=== PATIENT | female | born 1955 | race Caucasian/White ===

== ENCOUNTER 2022-07-09 12:14 | Outpatient (CLI) | payer MEDICARE, SELFPAY ==
--- NOTE | ~2022-07-09 | US_ITS ---
EXAMINATION: US venous doppler LE RT DATE: 07/09/2022 12:48 INDICATION: Chronic venous insufficiency of the lower extremities TECHNIQUE: Grayscale ultrasound images without and with compression and Doppler ultrasound images of the right lower extremity veins were obtained. COMPARISON: None. FINDINGS: The visualized portions of right common femoral vein, profunda (deep) femoral vein, femoral vein, pop liteal vein, peroneal trunk, posterior tibial veins, peroneal veins, gastrocnemius vein and greater s aphenous vein outflow are patent. IMPRESSION: 1. No deep venous thrombosis in the right lower limb. Reviewed, dictated and finalized at location A. [facility]
== END 2022-07-09 12:15 | disposition home or self-care (01) ==
PROVIDERS: PCP Family Medicine; Visit Provider Family Medicine
DX: M79.89 Other specified soft tissue disorders (principal)
CPT/HCPCS: 93971

== ENCOUNTER 2022-08-15 13:15 | Outpatient (CLI) | payer MEDICARE, SELFPAY ==
--- NOTE | 2022-08-15 13:29 | ECHO_ITS ---
Patient Info Name: Sandra Perez Age: 66 years : 1955 Gender: Female Ht: 64 in Wt: 263 lbs BSA: 2.39 m2 HR: 96 bpm BP: 178 / 98 mmHg Heart Rhythm: Sinus Rhythm Exam Date: 08/15/2022 2:45 PM Exam Location: [facility] Patient Status: Outpatient Admit Date: 08/15/2022 Staff Ordering Physician: Marti Irizarry MD It Sales Representative: Christina Martini RDCS Attending Provider: Marti Irizarry MD Exam Type: CA echo doppler color flow Study Info Indications I10 - Essential (primary) hypertension Complete two-dimensional, color flow and Doppler transthoracic echocardiogram is performed. Summary 1. Complete two-dimensional, color flow and Doppler transthoracic echocardiogram is performed. 2. Left ventricular systolic function is normal, estimated at 55-60%. 3. There is mildly increased left ventricular wall thickness. 4. The left ventricular diastolic function is grade I diastolic dysfunction. 5. There is mild tricuspid valve regurgitation. Left Ventricle Left ventricular chamber dimension is normal. Left ventricular systolic function is normal, estimated at 55-60%. There is mildly increased left ventricular wall thickness. The left ventricular diastolic function is grade I diastolic dysfunction. Right Ventricle Right ventricular chamber dimension is normal. Left Atria Left atrial chamber dimension is normal. Right Atria Right atrial chamber dimension is normal. Atrial Septum Intact interatrial septum visualized by color flow imaging. Aortic Valve The aortic valve is probable trileaflet. There is no aortic valve stenosis. There is no aortic valve regurgitation. Pulmonic Valve The pulmonic valve is not well visualized. Mitral Valve There is no mitral valve stenosis. There is trace mitral valve regurgitation. There is mild mitral valve calcification. Tricuspid Valve The tricuspid valve leaflets are normal. There is mild tricuspid valve regurgitation. Pericardium/Pleural There is no pericardial effusion. Inferior Vena Cava Dilated inferior vena cava with <50% collapse upon inspiration consistent with elevated right atrial pressure. Aorta The aortic root size at the sinus of Valsalva is normal. Left Ventricular Outflow Tract Name Value Normal LVOT 2D LVOT Diameter 2.0 cm LVOT Doppler LVOT Peak Gradient 4 mmHg LVOT Mean Gradient 2 mmHg LVOT VTI 22 cm LVOT VTI/AV VTI Ratio 0.5 LVOT Stroke Volume 69 ml Pulmonic Valve Name Value Normal RVOT Doppler RVOT Peak Gradient 2 mmHg PV Doppler PV Peak Gradient 7 mmHg Mitral Valve
== END 2022-08-15 13:16 | disposition home or self-care (01) ==
PROVIDERS: PCP Family Medicine; Visit Provider Family Medicine
DX: R01.1 Cardiac murmur, unspecified (principal); I10 Essential (primary) hypertension; I07.1 Rheumatic tricuspid insufficiency
CPT/HCPCS: 93306

== ENCOUNTER 2022-08-27 00:29 | Day surgery (SDC) | payer MEDICARE, SELFPAY ==
[2022-08-13 11:35] VITALS: BMI 44.9
[2022-08-27 06:18] VITALS: BP 151/72; PULSE 88; RESP 16; TEMP 36.2; O2SAT 99
[2022-08-27] MEDS: LACTATED RINGERS 1,000 ML 150 ML IV CONT (06:22)
[2022-08-27 06:28] LABS: Glucose Point of Care 111 mg/dl (65-105)
--- NOTE | 2022-08-27 07:19 | WPDANESEPPF ---
Anes - Initial Pre Proc Eval Procedure: Operation Date: 08/27/22 07:30 Proposed Procedures p Screening Colonoscopy - Dharmesh Peters MD Date/Time: 08/27/22 07:19 Surgeon: Dharmesh Peters MD Pre Op Diagnosis: Neoplasm Screening Patient Data Age: 66 Gender: F Height: 1.63 m Weight: 116.8 kg Last Vital Signs Temp 97.2 F L 08/27/22 06:18 Pulse 88 08/27/22 06:18 Resp 16 08/27/22 06:18 BP 151/72 H 08/27/22 06:18 Pulse Ox 99 08/27/22 06:18 O2 Del Method Room Air 08/27/22 06:18 Allergies Allergy/AdvReac Type Severity Reaction Status Date / Time Sulfa (Sulfonamide AdvReac Unknown Nausea and Verified 08/27/22 06:17 Antibiotics) Vomiting Home Medications Medication Instructions Recorded Confirmed Type amlodipine 5 mg tablet 5 mg PO DAILY #90 tabs 02/04/22 08/27/22 Rx blood-glucose meter (OneTouch #1 ea 02/12/22 08/27/22 Rx Ultra2 Meter kit) metformin 1,000 mg tablet 1,000 mg PO BID #180 tabs 03/20/22 08/27/22 Rx tramadol 50 mg tablet 50 mg PO Q8H PRN pain #30 tabs 03/20/22 08/27/22 Rx furosemide 40 mg tablet 40 mg PO DAILY #90 tabs 04/10/22 08/27/22 Rx lisinopril 40 mg tablet 40 mg PO DAILY #90 tabs 04/10/22 08/27/22 Rx glipizide 10 mg tablet 20 mg PO BID #360 tabs 07/09/22 08/27/22 Rx potassium chloride 20 mEq 20 meq PO DAILY 07/09/22 08/27/22 History tablet,extended release(part/cryst) pramipexole 1 mg tablet 1.5 mg PO BID #90 tabs 07/23/22 08/27/22 Rx triamcinolone acetonide 0.5 % 1 applic topical BID #30 grams 07/23/22 08/27/22 Rx topical cream cholecalciferol (vitamin D3) 1,250 1,250 mcg PO WEEKLY #12 tabs 08/06/22 08/27/22 Rx mcg (50,000 unit) tablet cyanocobalamin (vitamin B-12) 1,000 mcg sublingual DAILY #90 tabs 08/06/22 08/27/22 Rx 1,000 mcg sublingual tablet gabapentin 300 mg capsule 300 mg PO TID 08/06/22 08/27/22 History Laboratory Tests 08/27/22 06:22 POC Capillary Glucose 111 mg/dl H mg/dl (65-105) Patient hx anesthesia problems: none Family hx anesthesia problems: none Results Review: All pre-operative results and documents have been reviewed as part of the pre-operative evaluation. [facility] Past Medical History Medical History Asymptomatic varicose veins of bilateral lower extremities Chronic venous insufficiency of lower extremity Essential hypertension Hyperlipidemia, unspecified Hypertension Restless leg syndrome Type 2 diabetes mellitus with other circulatory complications Surgical History Surgical History H/O section Family History Family History Mother Diabetes mellitus, Onset Age: 83 Grandparent Diabetes mellitus, Onset Age: 68 Family history of cardiovascular disease, Onset Age: 68 Cerebrovascular accident, Onset Age: 41 Family history of dementia, Onset Age: 87 Father Family history of cardiovascular disease, Onset Age: 74 Social History Social History Smoking packs per day: 1 Smoking cigarettes per day: 20.0 Years smoked: 18 Smoking pack-years: 18.00 Smoking status: Former smoker Tobacco type: cigarettes Second hand tobacco smoke exposure: Yes (States mother smokes so she is exposed once a day) Smoking end date: 08/18/93 Alcohol intake: current Alcohol use details: On occasion Substance use: never Substance use type: does not use Lack of Transportation: No Lack of Food: Never True Current Housing: I Have Housing Concerned About Future Housing: No Difficulty Paying Gas/Electric Bills: No Difficulty Paying for Meds: No Currently Unemployed: No Education: Associate Degree Difficulty w/ Childcare or Family Care: No Gender identity (if verbalized by the patient): Female Sexual Orientation (if Verbalized by the
--- NOTE | 2022-08-27 07:24 | PM.HPGS ---
History of Present Illness History of Present Illness Consent: Risks, benefits, and alternatives have been discussed and questions answered. Patient agrees to proceed with procedure. Chief complaint: Neoplasm Screening Narrative: Sandra Perez is a 66 year old female Presents for screening colonoscopy. Patient's current weight appetite and bowel movements are normal. Patient denies abdominal pain. She has had no bleeding. Family history is noncontributory. Review of Systems Review of Systems: Review of systems noncontributory. [facility] Past Medical History Medical History Asymptomatic varicose veins of bilateral lower extremities Chronic venous insufficiency of lower extremity Essential hypertension Hyperlipidemia, unspecified Hypertension Restless leg syndrome Type 2 diabetes mellitus with other circulatory complications Surgical History Surgical History H/O section Family History Family History Mother Diabetes mellitus, Onset Age: 83 Grandparent Diabetes mellitus, Onset Age: 68 Family history of cardiovascular disease, Onset Age: 68 Cerebrovascular accident, Onset Age: 41 Family history of dementia, Onset Age: 87 Father Family history of cardiovascular disease, Onset Age: 74 Social History Social History Smoking packs per day: 1 Smoking cigarettes per day: 20.0 Years smoked: 18 Smoking pack-years: 18.00 Smoking status: Former smoker Tobacco type: cigarettes Second hand tobacco smoke exposure: Yes (States mother smokes so she is exposed once a day) Smoking end date: 08/18/93 Alcohol intake: current Alcohol use details: On occasion Substance use: never Substance use type: does not use Lack of Transportation: No Lack of Food: Never True Current Housing: I Have Housing Concerned About Future Housing: No Difficulty Paying Gas/Electric Bills: No Difficulty Paying for Meds: No Currently Unemployed: No Education: Associate Degree Difficulty w/ Childcare or Family Care: No Gender identity (if verbalized by the patient): Female Sexual Orientation (if Verbalized by the Patient): Straight or Heterosexual Agree to blood products: Yes Meds Home Medications and Allergies Home Medications Medication Instructions Recorded Confirmed Type amlodipine 5 mg tablet 5 mg PO DAILY #90 tabs 02/04/22 08/27/22 Rx blood-glucose meter (OneTouch #1 ea 02/12/22 08/27/22 Rx Ultra2 Meter kit) metformin 1,000 mg tablet 1,000 mg PO BID #180 tabs 03/20/22 08/27/22 Rx tramadol 50 mg tablet 50 mg PO Q8H PRN pain #30 tabs 03/20/22 08/27/22 Rx furosemide 40 mg tablet 40 mg PO DAILY #90 tabs 04/10/22 08/27/22 Rx lisinopril 40 mg tablet 40 mg PO DAILY #90 tabs 04/10/22 08/27/22 Rx glipizide 10 mg tablet 20 mg PO BID #360 tabs 07/09/22 08/27/22 Rx potassium chloride 20 mEq 20 meq PO DAILY 07/09/22 08/27/22 History tablet,extended release(part/cryst) pramipexole 1 mg tablet 1.5 mg PO BID #90 tabs 07/23/22 08/27/22 Rx triamcinolone acetonide 0.5 % 1 applic topical BID #30 grams 07/23/22 08/27/22 Rx topical cream cholecalciferol (vitamin D3) 1,250 1,250 mcg PO WEEKLY #12 tabs 08/06/22 08/27/22 Rx mcg (50,000 unit) tablet cyanocobalamin (vitamin B-12) 1,000 mcg sublingual DAILY #90 tabs 08/06/22 08/27/22 Rx 1,000 mcg sublingual tablet gabapentin 300 mg capsule 300 mg PO TID 08/06/22 08/27/22 History Allergies Allergy/AdvReac Type Severity Reaction Status Date / Time Sulfa (Sulfonamide AdvReac Unknown Nausea and Verified 08/27/22 06:17 Antibiotics) Vomiting Vital Signs Vital Signs - 24 hr 08/27/22 06:18 Temperature 97.2 F L Pulse Rate 88 Respiratory Rate 16 Blood Pressure 151/72 H Pulse Oximetry 99 Ox
[2022-08-27 07:49] VITALS: BP 106/65; PULSE 79; RESP 21; O2SAT 93
[2022-08-27 07:59] VITALS: BP 110/61; PULSE 80; RESP 19; O2SAT 94
[2022-08-27 08:09] VITALS: BP 117/66; PULSE 80; RESP 12; O2SAT 93
== END 2022-08-27 08:19 | disposition home or self-care (01) ==
PROVIDERS: PCP Nurse Practitioner; Visit Provider Internal Medicine Gastroenterology
PROC: 0DJD8ZZ Inspection of Lower Intestinal Tract, Via Natural or Artificial Opening Endoscopic (ICD-10-PCS; CPT 45378; principal; 2022-08-27 07:30)
DX: Z12.11 Encounter for screening for malignant neoplasm of colon (principal); D12.2 Benign neoplasm of ascending colon; K64.8 Other hemorrhoids; E11.59 Type 2 diabetes mellitus with other circulatory complications; I10 Essential (primary) hypertension; G25.81 Restless legs syndrome; I87.2 Venous insufficiency (chronic) (peripheral); E78.5 Hyperlipidemia, unspecified; Z79.84 Long term (current) use of oral hypoglycemic drugs; Z87.891 Personal history of nicotine dependence; E66.01 Morbid (severe) obesity due to excess calories; Z68.41 Body mass index [BMI] 40.0-44.9, adult
CPT/HCPCS: 45385; 82948; 88305; J2704; J7120

== ENCOUNTER 2023-02-11 08:14 | Outpatient (CLI) | payer MEDICARE, SELFPAY ==
--- NOTE | 2023-02-21 10:05 | WPDSLEEPSTUD ---
Sleep Study Date of Study: 02/11/23 Ordering Provider: Peggy Monahan APRN Interpreting Physician: Suzie Cannon MD Sleep Study Type: Split Polysomnogram Height: 1.63 m Weight: 117.934 kg Body Mass Index: 44.6 Neck Circumference (inches): 17 [place]: 19 Reason for Sleep Study Hypersomolence Sleep History Sandra Perez is a 67-year-old female with history of hypersomnolence who is having a split night polysomnogram. 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 Although things are better some of the habits linger. She normally reports 4-5 hours of sleep at night. Only once this year has she had 7 hours of sleep. She does nap. She never awakens from sleep short of breath. She never awakens at night with heartburn, belching or cough.??She frequently snores, and frequently snores loudly enough that others complain. She occasionally has trouble sleeping when she has a cold. She never suddenly wakes up gasping for breath during the night. She all weight has breathing problems at night reported to her by others. She never sweats excessively at night. She never notices her heart pounding or beating irregularly during the night. She frequently falls asleep during the day. She rarely falls asleep while driving. She never experiences loss of muscle tone with strong emotion. She never feels paralyzed on waking or falling asleep. She never experiences vivid dreams upon waking or falling asleep. She never feels afraid of going to sleep. She never has nightmares. She rarely recalls her dreams. She occasionally has thoughts racing through her mind. She rarely feels sad or depressed. She occasionally feels anxiety or worry about things. She frequently notices parts of her body jerk. She occasional kicks during the night. She constantly feels crawling or aching feelings in her legs, Has a diagnosis of restless legs syndrome treated with pramipexole a mg 3 tablets daily she also takes gabapentin 300 mg 3 daily. She never feels leg pain at night. She never grinds her teeth or has morning jaw pain. She occasionally feels bothered by pain during the day, rarely is awakened by pain during the night. She occasionally wakes up feeling stiff, sore, and achy in the morning, rarely with pain in her neck, spine, or joints. ? She reports a 15 lb weight gain in the last year. ? Normal bedtime is around 11:00 p.m., taking a few minutes to fall asleep. She typically gets about 4-5 hours of sleep per night. Her wake up time is 3-4 a.m. she keeps the same schedule on weekends. She wakes typically 2 times during the night. This may happen soon after falling asleep and in the middle of the night. She may stay awake as long as 3 hours. she takes naps in the day. A short nap lasting 10 or 15 minutes may be refreshing. She is usually drowsy for 2 hours after waking. She feels better in the afternoon compared to other times of day. Habits:??Tobacco:quit 22 years ago Caffeine: none Alcohol: occasionally Recreational substances:none PMFSH Past Medical History Medical History Asymptomatic varicose veins of bilateral lower extremities Back pain Chronic venous insufficiency of lower extremity Essential hypertension Hyperlipidemia, unspecified Hypersomnia Hypertension Restless leg syndrome Type 2 diabetes mellitus with other circulatory complications Surgical History Surgical History H/O section Family History Family History Mother Diabetes mellitus, Onset Age: 83 Grandparent Diabetes mellitus, Onset Age: 68 Family history of cardiovascular disease, Onset Age: 68 Cerebrovascular accident, Onset Age: 41 Family history of dementia, Onset Age: 87 Father Family history of cardiovascular disease, Onset Age: 74 So
[2023-02-21 12:52] VITALS: BMI 44.6
== END 2023-02-12 07:25 | disposition home or self-care (01) ==
LOC: ANHCSM 08:14
PROVIDERS: PCP Nurse Practitioner; Visit Provider Nurse Practitioner Family
DX: G47.10 Hypersomnia, unspecified (principal); G47.33 Obstructive sleep apnea (adult) (pediatric)
CPT/HCPCS: 95811

== ENCOUNTER 2023-04-22 08:39 | Outpatient (CLI) | payer MEDICARE, SELFPAY ==
--- NOTE | 2023-04-24 10:43 | WPDSLEEPSTUD ---
Sleep Study Date of Study: 04/22/23 Ordering Provider: Peggy Monahan APRN Interpreting Physician: Suzie Cannon MD Sleep Study Type: BiPAP Titration Height: 1.6 m Weight: 117.934 kg Body Mass Index: 46.0 Neck Circumference (inches): 15 [place]: 19 Reason for Sleep Study 02/01/2023 split night study showed?severe obstructive sleep apnea, AHI is 37 with desaturation to 78% and snoring treated with CPAP 13 cm using a medium ResMed AirTouch Fullface mask with heated humidity and oxygen 1 L/minute.? She had residual events, and insurance wanted her to repeat the titration with higher pressures to determine whether or not she needs supplemental O2 with PAP. She returns for a repeat PAP titration. Sleep History Sandra Perez is a 67-year-old female with history of hypersomnolence who returns after asplit night study 02/11/23 with incomplete titraiton, see above. She normally reports 4-5 hours of sleep at night.? She does nap. She never awakens from sleep short of breath. She never awakens at night with heartburn, belching or coughing.??She frequently snores,? and frequently snores loudly enough that others complain. She? occasionally has trouble sleeping when she has a cold. She? never suddenly wakes up gasping for breath during the night. She? all weight has breathing problems at night reported to her by others.? She never sweats excessively at night. She never notices her heart pounding or beating irregularly during the night. She? frequently falls asleep during the day. She rarely falls asleep while driving. She? never experiences loss of muscle tone with strong emotion. She? never feels paralyzed on waking or falling asleep. She? never experiences vivid dreams upon waking or falling asleep. She? never feels afraid of going to sleep. She? never has nightmares. She?rarely recalls her dreams. She occasionally has thoughts racing through her mind. She rarely feels sad or depressed. She occasionally feels anxiety or worry about things. She frequently notices parts of her body jerk. She occasional kicks during the night. She constantly feels crawling or aching feelings in her legs, ? Has a diagnosis of restless legs syndrome treated with pramipexole a mg 3 tablets daily she also takes gabapentin 300 mg 3 daily. She never feels leg pain at night. She never grinds her teeth or has morning jaw pain.? She occasionally feels bothered by pain during the day, rarely is awakened by pain during the night. She occasionally wakes up feeling stiff, sore, and achy in the morning, rarely with pain in her neck, spine, or joints. ?? She reports a 15 lb weight gain in the last year. ? Normal bedtime is around? 11:00 p.m., taking? a few minutes to fall asleep. She typically gets about? 4-5 hours of sleep per night. Her wake up time is? 3-4 a.m. she keeps the same schedule on weekends.? She wakes typically 2 times during the night.? This may happen soon after falling asleep and in the middle of the night.? She may stay awake as long as 3 hours.? She takes naps in the day.? A short nap lasting 10 or 15 minutes may be refreshing.? She is usually drowsy for 2 hours after waking.? She feels better in the afternoon compared to other times of day.? Habits:??Tobacco:quit 22 years ago ? Caffeine: none? Alcohol: occasionally? ? Recreational substances:none [facility] Past Medical History Medical History (Updated 04/24/23 @ 19:34 by Suzie Cannon MD) Asymptomatic varicose veins of bilateral lower extremities Back pain Chronic venous insufficiency of lower extremity Essential hypertension Hyperlipidemia, unspecified Hypersomnia Hypertension Obstructive sleep apnea Restless leg syndrome Type 2 diabetes mellitus with other circulatory complications Surgical History Surgical History H/O section Family History Family History Mother Diabetes mellitus, O
[2023-04-24 19:23] VITALS: BMI 46.0
== END 2023-04-23 06:48 | disposition home or self-care (01) ==
PROVIDERS: PCP Nurse Practitioner; Visit Provider Nurse Practitioner Family
DX: G47.33 Obstructive sleep apnea (adult) (pediatric) (principal); G47.10 Hypersomnia, unspecified; G25.81 Restless legs syndrome
CPT/HCPCS: 95811

== ENCOUNTER 2024-05-05 08:39 | Emergency (ER) | payer MEDICARE, SELFPAY ==
--- NOTE | ~2024-05-05 | US_ITS ---
EXAMINATION: US venous doppler [facility] DATE: 05/05/2024 10:37 INDICATION: Left lower limb pain and swelling. TECHNIQUE: Grayscale ultrasound images without and with compression and Doppler ultrasound images of the left lower extremity veins were obtained. COMPARISON: Ultrasound 03/12/2017 FINDINGS: The visualized portions of left common femoral vein, profunda (deep) femoral vein, femoral vein, popl iteal vein, peroneal veins, posterior tibial veins, and greater saphenous vein outflow are patent. IMPRESSION: 1. No deep venous thrombosis. Reviewed, dictated and finalized at location A.
--- NOTE | 2024-05-05 09:08 | ED.LOWEXIN ---
HPI - Extremity Injury (Lower) General Chief Complaint: Extremity Problem,Nontraumatic Stated Complaint: left leg swelling/pain Time Seen by Provider: 05/05/24 08:56 Source: patient Mode of arrival: ambulatory Limitations: no limitations History of Present Illness HPI Narrative: This is a 68-year-old female With PMH of chronic venous insufficiency, lymphedema, T2 dm, HLD, HTN, varicose veins, restless leg who presents to the ED with chief complaint of left lower extremity swelling gradually onset over the past 1-2 weeks. Reports that the leg only started to hurt over the last couple of days. A couple of days ago she noticed that the swelling was increasing to the point that it caused an open sore to the anterior mejias. Reports that it was draining clear fluid like water. She has concern for possible DVT. States that she has never had a blood clot before and does not have any coagulating disorders that she knows of. Denies fevers, chills, nausea, vomiting, numbness, weakness, chest pain, shortness of breath. Related Data Allergies Allergy/AdvReac Type Severity Reaction Status Date / Time Sulfa (Sulfonamide AdvReac Unknown Nausea and Verified 02/23/24 09:05 Antibiotics) Vomiting Review of Systems Review of Systems: All systems as dictated in [facility] Past Medical History Medical History Asymptomatic varicose veins of bilateral lower extremities Back pain Chronic venous insufficiency of lower extremity Dark brown-colored urine Encounter for annual wellness exam in Medicare patient Encounter for screening colonoscopy Essential hypertension Hyperlipidemia, unspecified Hypersomnia Hypertension Insomnia Obstructive sleep apnea Obstructive sleep apnea on CPAP Pain of right heel Restless leg syndrome Type 2 diabetes mellitus with other circulatory complications Surgical History Surgical History H/O section Family History Family History Mother Diabetes mellitus, Onset Age: 83 Grandparent Diabetes mellitus, Onset Age: 68 Family history of cardiovascular disease, Onset Age: 68 Cerebrovascular accident, Onset Age: 41 Family history of dementia, Onset Age: 87 Father Family history of cardiovascular disease, Onset Age: 74 Social History Social History Smoking packs per day: 1 Smoking cigarettes per day: 20.0 Years smoked: 18 Smoking pack-years: 18.00 Smoking status: Former smoker Tobacco type: cigarettes Second hand tobacco smoke exposure: Yes (States mother smokes so she is exposed once a day) Smoking end date: 08/18/93 Alcohol intake: current Alcohol use details: On occasion Substance use: never Substance use type: does not use Lack of Transportation: No Lack of Food: Never True Current Housing: I Have Housing Concerned About Future Housing: No Difficulty Paying Gas/Electric Bills: No Difficulty Paying for Meds: No Currently Unemployed: No Education: Associate Degree Difficulty w/ Childcare or Family Care: No Living arrangements: with family Occupation/Education: retired Gender identity (if verbalized by the patient): Female Sexual Orientation (if Verbalized by the Patient): Straight or Heterosexual Agree to blood products: Yes Exam Narrative: GENERAL: Well-appearing, well-nourished, and in no acute distress. HEAD: Normocephalic, atraumatic. EYES: PERRLA and EOMI. ENT: Nares clear, no rhinorrhea or epistaxis. Mucous membranes moist. Oropharynx without tonsillar hypertrophy exudate or other lesions. NECK: Supple. No adenopathy or masses. CHEST: No respiratory distress. Clear to auscultation. No wheezes rales or rhonchi HEART: Regular rate and rhythm. No murmur heard. Normal peripheral pu
[2024-05-05 09:30] LABS: Basophils Percent Auto 0.3 % (0.2-1.2); Eosinophils Absolute Auto 0.2 K/mm3 (0-0.3); Eosinophils Percent Auto 2.2 % (0-4.4); Hematocrit 39.1 % (37.0-47.0); Hemoglobin 12.7 g/dL (12.0-15.0); Immature Granulocyte Absolute 0.12 K/mm3 (0.00-0.031); Immature Granulocyte Percent A 1.2 % (0-0.5); Lymphocytes Absolute Auto 1.51 K/mm3 (0.9-3.2); Lymphocytes Percent Auto 14.9 % (18.3-44.2); Mean Corpuscular HGB Conc 32.5 g/dl (32-36); Mean Corpuscular Hemoglobin 28.5 pg (26-34); Mean Corpuscular Volume 87.7 fl (80-100); Mean Platelet Volume 10.7 fl (7.4-10.4); Monocytes Absolute Auto 0.6 K/mm3 (0.1-0.6); Monocytes Percent Auto 5.5 % (2.6-8.5); Neutrophils Absolute Auto 7.7 K/mm3 (1.3-6.7); Neutrophils Percent Auto 75.9 % (45.5-73.1); Platelet Count Result 194 k/mm3 (150-375); Red Blood Count 4.46 M/mm3 (4.2-5.4); White Blood Count 10.2 K/mm3 (4.5-10.0)
[2024-05-05 09:37] VITALS: BP 142/65; PULSE 84; RESP 20; TEMP 36.8; O2SAT 95
[2024-05-05 09:38] LABS: Partial Thromboplastin Time 26.6 Seconds (22.3-36.8); Prothrombin Time 13.5 Seconds (11.1-14.7)
[2024-05-05 09:47] LABS: Alanine Aminotransferase 53 U/L (6-35); Albumin Level 4.1 g/dL (3.5-5.1); Alkaline Phosphatase 122 U/L (38-126); Anion Gap 9 mmol/L (4-12); Aspartate Amino Transferase 38 U/L (14-36); Bilirubin,Total 0.7 mg/dL (0.2-1.3); Blood Urea Nitrogen 11 mg/dL (7-17); Calcium 8.8 mg/dL (8.4-10.2); Carbon Dioxide 30 mmol/L (22-30); Chloride 93 mmol/L (98-107); Estimated CRCL calculation 97 ml/min; Estimated Glomerular Filt Rate > 60; Glucose 271 mg/dL (65-110); Potassium 3.7 mmol/L (3.4-5.0); Sodium 132 mmol/L (137-145)
[2024-05-05 11:31] VITALS: BP 140/70; PULSE 80; RESP 18; TEMP 36.6; O2SAT 97
== END 2024-05-05 11:32 | disposition home or self-care (01) ==
PROVIDERS: Emergency Provider Physician Assistant; PCP Family Medicine
DX: L03.116 Cellulitis of left lower limb (principal); I99.8 Other disorder of circulatory system; E11.9 Type 2 diabetes mellitus without complications; E78.5 Hyperlipidemia, unspecified; I10 Essential (primary) hypertension; G47.33 Obstructive sleep apnea (adult) (pediatric); Z99.89 Dependence on other enabling machines and devices; Z87.891 Personal history of nicotine dependence
CPT/HCPCS: 36415; 80053; 85025; 85610; 85730; 86140; 93971; 99284

== ENCOUNTER 2024-05-27 07:24 | Outpatient (RCR) | payer MEDICARE, SELFPAY ==
[2024-05-19 10:00] VITALS: BMI 43.2
== END 2024-06-30 12:51 | disposition home or self-care (01) ==
LOC: ANHWOC 07:24
PROVIDERS: PCP Family Medicine; Visit Provider Family Medicine
DX: I83.029 Varicose veins of left lower extremity with ulcer of unspecified site (principal); I83.892 Varicose veins of left lower extremity with other complications; L97.929 Non-pressure chronic ulcer of unspecified part of left lower leg with unspecified severity; R60.0 Localized edema
CPT/HCPCS: 99213; 99214; G0463

== ENCOUNTER 2024-09-30 12:21 | Outpatient (CLI) | payer MEDICARE, SELFPAY ==
--- NOTE | ~2024-09-30 | XR_ITS ---
Lumbosacral Spine: AP, oblique, and lateral views Clinical History: Pain Findings: The normal lordotic curve is maintained. The vertebral bodies and posterior elements are i ntact. There are mild degenerative disc changes throughout the lumbar spine. There is moderate to adv anced facet arthropathies otherwise spine. The sacroiliac joints are normally outlined. Impression: Moderate degenerative spondylosis overall, as detailed above, with extensive facet arthropathy in par ticular. Reviewed, dictated and finalized at location [facility] Impression: Moderate degenerative spondylosis overall, as detailed above, with extensive fa cet arthropathy in particular.
--- OUTSIDE RECORDS SUMMARY | 2024-09-30 12:27 | XMS_ITS | Clinical Summary ---
Author Organization [facility] Address [address] [place] [address] Phone Care Team Providers Care Sample Case Porter Name Role Phone Saray Hopson NP Primary Care Provider [phone] Allergies No known active allergies Medications glimepiride (AMARYL) 2 mg tablet TAKE 1 TABLET DAILY 90 2 02/11/2013 Active blood glucose diagnostic (ONETOUCH ULTRA TEST) strip USE TO MONITOR BLOOD SUGAR DAILY 3 strip 2 01/04/2014 Active traMADol (ULTRAM) 50 mg tablet take 1 tablet by oral route every 8 hours as needed 60 1 07/15/2016 Active empagliflozin (JARDIANCE) 25 mg tablet take 1 tablet by oral route every day in the morning 90 3 07/19/2016 Active orphenadrine ER (NORFLEX) 100 mg 12 hr tablet Take one by mouth two times per day 40 1 11/29/2008 Active lisinopril (PRINIVIL,ZESTR IL) 40 mg tablet Take 1 tablet (40 mg total) by mouth daily. 90 tablet 3 03/07/2017 Active metFORMIN (FORTAMET) 500 mg 24 hr tablet Take 2 tablets (1,000 mg total) by mouth 2 (two) times a day with meals. 360 tablet 3 03/07/2017 Active amLODIPine (NORVASC) 5 mg tablet Take 1 tablet (5 mg total) by mouth daily. 90 tablet 3 03/07/2017 Active furosemide (LASIX) 40 mg tablet Take 1 tablet (40 mg total) by mouth 2 (two) times a day. 60 tablet 3 03/10/2017 Active potassium chloride ER (KLOR-CON M20) 20 mEq CR tablet Take 1 tablet (20 mEq total) by mouth 2 (two) times a day. 60 tablet 3 03/10/2017 Active pramipexole (MIRAPEX) 1 mg tablet Take 1 tablet (1 mg total) by mouth 2 (two) times a day. 60 tablet 11 04/18/2017 Active gabapentin (NEURONTIN) 300 mg capsule Take 1 capsule (300 mg total) by mouth 2 (two) times a day. 60 capsule 3 01/15/2018 Active Active Problems Problem Noted Date Diagnosed Date Localized edema 03/10/2017 Assessment & Plan (03/10/2017 9:35 PM CDT): Plan to obtain venous doppler to bilateral lower extremities. Increase lasix to 40 mg BID along with elevating as much as possible. Cellulitis of lower extremity 03/10/2017 Assessment & Plan (03/10/2017 9:36 PM CDT): Plan to start Bactrim DS BID x 10 days. Obesity, morbid, BMI 40.0-49.9 03/10/2017 Assessment & Plan (03/10/2017 9:37 PM CDT): Obesity is unchanged. Discussed the patient's BMI. The BMI is above average; BMI management plan is completed. General weight loss/lifestyle modification strategies discussed (elicit support from others; identify saboteurs; non-food rewards, etc). Restless legs syndrome 07/15/2016 Overview (11/22/2016): RESTLESS LEGS SYNDROME Diabetes mellitus 04/25/2014 Overview (11/22/2016): Diabetes Hypertension 01/01/2014 Overview (11/23/2016): HYPERTENSION NOS Immunizations Name Administration Dates Next Due Influenza, Quadrivalent, Spl it, Preservative Free, Intradermal 07/15/2016 Influenza, Split 05/07/2011 Influenza, Trivalent, IM (MDV) 05/23/2015,2011 Td, adsorbed 08/18/1978 Tdap 11/22/2008 Medical History Medical History Date Comments Hx Other Medical Restless Leg Sy ndrome Hypertension Hypertension Family History Medical History Relation Name Comments Coronary artery disease Brother 1 Kirby nary artery disease; Hyperlipidemia Brother 1 Hyperlipidemi a; Other Brother 1 CABGx4; Other Brother 2 Tobaccoism; Lung cancer Father Cancer -lung; Other Father Tobaccoism; Hyperlipidemia Mother Hyperlipidemi a; Hypertension Mother Hypertension; Relation Name Status Comments Brother 1 Brother 2 Father Mother Social History Tobacco Use Types Packs/Day Years Used Date Smoking Tobacco: Former Alcohol Use Standard Drinks/Week Comments Yes 0 (1 standard drink = 0.6 oz pur e alcohol) Comments No Sex and Gender Information Value Date Recorded Sex Assigned at Not on file 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 Gender Identity Not on file Sexual Orientation Not on file Obstetrics History Last Filed Vital Signs Vital Sign Reading Time Taken Comments Blood Pressure 183/90 03/10/2017 11:28 AM CDT Pulse 93 03/10/2017 11:28 AM CDT Temperature 36.6 C (97.8 F) 03/10/2017 11:28 AM CDT Respiratory Rate - - Oxygen Saturation - - Inhaled Oxygen Concentration - - Weight 114.8 kg (253 lb) 03/10/2017 11:28 AM CDT Height 163.8 cm (5' 4.5 ) 03/10/2017 11:28 AM CD T Body Mass Index 42.76 03/10/2017 11:28 AM CDT Plan of Treatment Not on file Insurance ANTH PREFERRED Care Teams Sample Case Porter Relationship Specialty [place] [id number] [address] PCP - General 05/23/15
--- OUTSIDE RECORDS SUMMARY | 2024-09-30 12:27 | XMS_ITS | Referral Summary ---
Author Organization [facility] Address [address] [place] [address] Phone Care Team Providers Care Accounts Payable Analyst Name Role Phone Saray Hopson NP Primary Care Provider [phone]- [phone] Allergies No known active allergies Medications glimepiride [...] (MDV) 05/23/2015,2011 Td, adsorbed 08/18/1978 Tdap 11/22/2008 Social History Tobacco Use Types Packs/Day Years Used Date Smoking Tobacco: Former Alcohol Use Standard Drinks/Week Comments Yes 0 (1 standard drink = 0.6 oz pur e alcohol) Comments No Sex and Gender Information Value Date Recorded Sex Assigned at Not on file 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
== END 2024-09-30 12:22 | disposition home or self-care (01) ==
PROVIDERS: PCP Nurse Practitioner Family; Visit Provider Family Medicine
DX: M54.30 Sciatica, unspecified side (principal); M47.896 Other spondylosis, lumbar region
CPT/HCPCS: 72110

== ENCOUNTER 2024-12-01 10:15 | Outpatient (RCR) | payer MEDICARE, SELFPAY ==
--- NOTE | 2024-10-19 14:53 | OPREHPOC ---
Outpatient Therapy Plan of Care This is a Multidisciplinary Plan of Care that may contain components documented by all disciplines (PT, OT, and ST.) PT Problem 1 PT Problem #1 Knowledge Deficit PT Goal 1 Goal / Goal Update [place] with HEP Target Visit 4 PT Goal 2 Goal / Goal Update Report pain no greater than 2/10 for 2 consecutive weeks Target Visit 8 PT Problem 2 PT Problem #2 Impaired Range of Motion PT Goal 1 Goal / Goal Update 1. Demonstrate 40+ degrees veronica hip abduction to reduce impingement of hip 2. Demonstrate even rotational hip motion to prevent pelvic assymetry Target Visit 8 PT Problem 3 PT Problem #3 Impaired Strength PT Goal 1 Goal / Goal Update 1. Improve veronica hip flexion strength to 4+/5 to improve foot clearance and pelvic stability 2. Improve veronica hip abduction to 4/5 to improve lateral stability with gait and transfers. Target Visit 8
--- NOTE | 2024-10-19 14:53 | PTOPEVAL1 ---
Assessment and note entered by He Rea, PT Evaluation Information Assessment Status Evaluation Diagnosis Left Sided Sciatica Onset September Subjective Information Reports that she does not recall a specific incident but has had back pain and radicular left leg pain. She is not sleeping well but also has apnea and uses a CPAP. History of restless leg syndrome. Pain is resolved occasionally with modalities alternating ice and heat. She is taking Oxycodone for pain which dulls it but it is still there. Gets most of her pain bending over. Morning are the worst ana she first gets up. Reported Pain Level Pain Score 3: Self Report Assessment PT Clinical Summary Patient presents with signs and symptoms consistent with lumbar stenosis and sciatica. At this time she is having increased pain with hip stretching activity. She will benefit from skilled therapy to address core strength, hip mobility, and gait deviation to reduce pain and restore functional mobility. Plan of Care Interventions Electrical Stimulation,Gait Training,Hot Pack/Cold Pack,Neuro Re-education,Therapeutic Activities, Therapeutic Exercise PT Services Indicated Yes Treatment Frequency and 2x/week for 8 visits Duration These treatments will address the objective and functional deficits as defined above. The patient will be advanced safely and appropriately in order for the patient to progress towards his/her prior level of function. Additional exercises will be introduced and as well as a comprehensive home exercise program upon discharge, if needed, ?to ensure carryover of functional gains achieved in the clinic. This treatment plan has been reviewed and agreement upon by the patient.
--- NOTE | 2024-11-10 15:53 | OPREHPOC ---
Outpatient Therapy Plan of Care This is a Multidisciplinary Plan of Care that may contain components documented by all disciplines (PT, OT, and ST.) PT Problem 1 PT Problem #1 Knowledge Deficit PT Goal 1 Goal / Goal Update [place] with HEP Target Visit 4 Progress Met PT Goal 2 Goal / Goal Update Report pain no greater than 2/10 for 2 consecutive weeks 11/10/24: 1. progressing Target Visit 8 Progress Partially Met PT Problem 2 PT Problem #2 Impaired Range of Motion PT Goal 1 Goal / Goal Update 1. Demonstrate 40+ degrees veronica hip abduction to reduce impingement of hip 2. Demonstrate even rotational hip motion to prevent pelvic asymmetry 11/10/24: 1. met 2. progressing Target Visit 8 Progress Partially Met PT Problem 3 PT Problem #3 Impaired Strength PT Goal 1 Goal / Goal Update 1. Improve veronica hip flexion strength to 4+/5 to improve foot clearance and pelvic stability 2. Improve veronica hip abduction to 4/5 to improve lateral stability with gait and transfers. 11/10/24: 1. progressing 2. progressing Target Visit 8
--- NOTE | 2024-11-10 15:53 | PTOPPROG ---
Assessment and note entered by Kerri Card, PT, DPT Evaluation Information Assessment Status Progress Diagnosis Left Sided Sciatica Onset September Subjective Information Pt states her pain has improved and reports good compliance with her HEP. Pt reports her current pain as 1/10 and 4/10 at the worst. Pt reports 80% improvement in overall symptoms. States only at time is her walking tolerance limited by pain. States she is a bit concerns because a flair up has neve lasted this long, is wondering if her pain will ever go away. Assessment PT Clinical Summary Patient presents to therapy today following 8 visits of skilled therapy to treat her symptoms associated with lumbar stenosis and sciatica. Today she demonstrates increased hip ROM aside from int rot, and improved hip strength aside from hip abduction. She is progressing towards her goals but still has functional limitations from her baseline including decreased standing and walking tolerance. Continuation to skilled therapy services are indicated to address core strength, hip mobility, and gait deviation to reduce pain and restore functional mobility. Plan of Care Interventions Electrical Stimulation,Gait Training,Hot Pack/Cold Pack,Neuro Re-education,Therapeutic Activities, Therapeutic Exercise PT Services Indicated Yes Treatment Frequency and 2x/week for 8 visits Duration These treatments will address the objective and functional deficits as defined above. The patient will be advanced safely and appropriately in order for the patient to progress towards his/her prior level of function. Additional exercises will be introduced and as well as a comprehensive home exercise program upon discharge, if needed, ?to ensure carryover of functional gains achieved in the clinic. This treatment plan has been reviewed and agreement upon by the patient.
--- NOTE | 2024-12-07 12:52 | PCPTNOTE ---
Patient called & cancelled scheduled appointment this date due to scheduling conflicts. States she will call back to reschedule.
== END 2025-01-17 23:59 | disposition home or self-care (01) ==
LOC: ANHGOSHPT 10:15
PROVIDERS: PCP Nurse Practitioner Family; Visit Provider Family Medicine
DX: M54.30 Sciatica, unspecified side (principal)
CPT/HCPCS: 97110; 97112; 97161; 97530

== ENCOUNTER 2024-12-01 14:30 | Outpatient (RCR) | payer MEDICARE, SELFPAY | END 2024-12-08 08:33 | disposition home or self-care (01) | LOC: ANHDMC 14:30 | PROVIDERS: PCP Nurse Practitioner Family; Visit Provider Nurse Practitioner Family | DX: E11.65 Type 2 diabetes mellitus with hyperglycemia (principal); Z71.89 Other specified counseling | CPT/HCPCS: G0108; G0109 ==

== ENCOUNTER 2024-12-30 13:56 | Outpatient (RCR) | payer MEDICARE, SELFPAY | END 2025-03-21 10:14 | disposition home or self-care (01) | LOC: ANHDMC 13:56 | PROVIDERS: Visit Provider Nurse Practitioner Family | DX: E11.9 Type 2 diabetes mellitus without complications (principal); Z71.89 Other specified counseling | CPT/HCPCS: G0109 ==

== ENCOUNTER 2025-06-09 09:41 | Outpatient (CLI) | payer MEDICARE, SELFPAY ==
--- NOTE | ~2025-06-09 | XR_ITS ---
XR thoracic spine 3V Indication: Spondylosis, unspecified Comparison: None Findings: Moderate loss of vertebral height, no fracture or subluxation. Moderate osteopenia. Moderate loss of disc height throughout. Soft tissues unremarkable Impression: No acute abnormality. Reviewed, dictated and finalized at location P. Impression: No acute abnormality.
== END 2025-06-09 09:42 | disposition home or self-care (01) ==
PROVIDERS: PCP Nurse Practitioner Family; Visit Provider Nurse Practitioner Family
DX: M47.9 Spondylosis, unspecified (principal)
CPT/HCPCS: 72072